=== PATIENT | female | born 1985 | race Caucasian/White ===

== ENCOUNTER → 2017-09-12 16:23 | Outpatient (CLI) | payer OTHER, SELFPAY ==
[2017-09-18 13:51] LABS: HPV Reflexed? NOT INDICATED
== END ==
PROVIDERS: Visit Provider Obstetrics & Gynecology
DX: Z12.4 Encounter for screening for malignant neoplasm of cervix (principal)
CPT/HCPCS: 88175; G0145

== ENCOUNTER → 2018-01-19 16:33 | Outpatient (CLI) | payer SELFPAY ==
[2018-01-19 18:07] LABS: Pregnancy, Serum, hCG Quali. NEGATIVE Negative (0-9 Nonpreg)
== END ==
PROVIDERS: Visit Provider Obstetrics & Gynecology
DX: N91.2 Amenorrhea, unspecified (principal)
CPT/HCPCS: 36415; 84703

== ENCOUNTER 2018-02-23 09:34 | Day surgery (SDC) | payer OTHER, SELFPAY ==
[2018-02-23 10:01] VITALS: BP 121/85; PULSE 79; RESP 18; TEMP 36.7; O2SAT 99; BMI 21.1
[2018-02-23 10:10] LABS: Internal QC Validated? YES +Cl - CLEAR BKGD; Pregnancy, Urine Negative Negative
--- NOTE | 2018-02-23 11:00 | NASAL_PTH ---
PATIENT: TASHA ARANDA LOC: [facility] [place] U[place][id number] AGE/SX: 32/F ROOM: RE02/23/[address]: Dr. Sharan Menon MD : 1985 BED: DIS: 02/23/2018 SPEC #: [id number] RECD: 02/24/18 09:07 STATUS: NHI NAEEM #: [id number] IGNACIO: 02/23/18 11:[address]: Sharan Menon DEPT: SURGICAL PATHOLOGY RECD BY: Manpreet Ayala ENTERED: 02/24/18 09:31 SP TYPE: NASAL SPEC OTHR DR: Norma Primary Care Phys Tissues: A - Ethmoid sinus, NOS B - Ethmoid sinus, NOS Procedures: Decalcification bone/plaque Surgery Specimen Level IV HEADER OPERATION: Endoscopic intranasal ethmoid, maxillary antrostomy PRE-OP DIAGNOSIS: Chronic pansinusitis, polyp of nasal cavity TISSUE SUBMITTED: A ? Left sinus contents, B ? Right sinus contents MICROSCOPIC DIAGNOSIS A. Left sinus contents: Fragments of respiratory mucosa with chronic inflammation and bone. B. Right sinus contents: Fragments of respiratory mucosa with chronic inflammation and bone. VIC:fariha 02/27/18 COMMENT Please make reference to previous specimen ([id number]) right sinus contents and left sinus contents with diagnosis of fragments of respiratory mucosa with chronic inflammation and bone. MICROSCOPIC DESCRIPTION Slides are reviewed. GROSS DESCRIPTION A - Received in fixative is one container labeled with the patient's name and designated left sinus contents. The specimen consists of multiple fragments of hemorrhagic mucoid tissue mixed with fragments of bone that in aggregate measure 5 x 3 x 0.3 cm. The entire specimen is submitted in two cassettes after decalcification. B - Received in fixative is one container labeled with the patient's name and designated right sinus contents. The specimen consists of multiple fragments of hemorrhagic mucoid tissue that in aggregate measure 3 x 2.5 x 0.2 cm. The entire specimen is submitted in one cassette. / VIC:afriha 02/24/18 TC:3 CPT: 05240 x2, 50818
--- NOTE | 2018-02-23 15:04 | PCM.DC ---
You will use the following diet at home:: Regular Your food should be the consistency of: Regular Additional Activity Instructions:: No noseblowing. Start irrigation on 02/24/18 (4x/day) Allergies/Adverse Reactions: Allergies Sulfa (Sulfonamide Antibiotics) Allergy (Verified 02/16/18 10:32) Rash NSAIDS (Non-Steroidal Anti-Inflamma Adverse Reaction (Verified 02/16/18 10:32) Hives, Wheezing, Sneezing Medications to take at Discharge Albuterol Inhaler [Ventolin Hfa] 1 - 2 puff INHALATION Q4H PRN PRN 09/18/14 Azelastine HCl [Astelin] 2 spray NASAL BID 04/01/16 Sertraline HCl [Zoloft] 50 mg PO DAILY 04/01/16 Fluticasone/Salmeterol [Advair Hfa 230-21 Mcg Inhaler] 2 puff INHALATION BID 02/16/18 Primary Care Physician: Care Physician,No Primary [Primary Care Provider] - Test Results: Test results from this visit will be discussed in further detail at your follow-up appointment, if applicable.
--- NOTE | 2018-02-23 16:13 | PCM.OPRPT ---
Report of Operation Date of Procedure: 02/23/18 Pre-Operative Diagnosis: chronic sinusitis Post-Operative Diagnosis: same Surgery/Procedure Performed:: bilateral maxillary antrostomy. bilateral total ethmoidectomy. Use of navigation Description of Surgical Findings:: polyps bilaterally Type of Anesthesia:: General Anesthesiologist: Prabhakar Reilly Specimen's removed: sinus contents Estimated Blood Loss (mL): minimal Description of Procedure: The patient was taken to the OR on 02/23/18. She was placed in the supine position on the OR table and given sufficient general anesthesia. The head of bed was then elevated 30 degrees. Zero and 30 degree rigid nasal endoscopes were used throughout the entire case. I injected 1% lidocaine with epinephrine into the polyps bilaterally. The procedure was started on the left. Polyp was resected with a microdebrider. I enlarged the maxillary antrum with a oscar cut forceps. I then removed diseased/polypoid tissue from the ethmoid cavity using Blakesly Wile forceps and a microdebrider. Navigation was used to ensure safe tissue removal. Hemostasis was achieved with sparing suction cautery and afrin pledgets. A steroid eluting sinus stent was then placed. Fozia was then used for absolute hemostasis. Attention was then turned to the right side. Polyp was removed from the ethmoid cavity using a microdebrider and forceps. Again navigation was used to ensure safe tissue removal. The maxillary antrum was widened with a microdebrider. Afrin pledgets were used for hemostasis. I then placed a steroid eluting stent into the ethmoid cavity. Fozia was used for absolute hemostasis. The procedure was then terminated. The patient was awoken and brought to the recover room in stable condition. blood loss minimal, replacement none. Sponge needle and instrument count were correct at the end of the procedure.
[2018-02-23 16:22] VITALS: BP 121/85; BP 150/77; PULSE 71; RESP 18; TEMP 36.4; O2SAT 99
[2018-02-23 16:30] VITALS: BP 121/85; BP 142/85; PULSE 75; RESP 18; O2SAT 97
[2018-02-23 16:45] VITALS: BP 121/85; BP 148/84; PULSE 79; RESP 18; TEMP 36.6; O2SAT 96
[2018-02-23 19:07] VITALS: BP 121/85; BP 160/89; PULSE 80; RESP 16; TEMP 37; O2SAT 98
== END 2018-02-23 19:09 | disposition home or self-care (01) ==
LOC: SDC 09:43 → AC 09:43
PROVIDERS: Visit Provider Otolaryngology
PROC: (CPT 31255; principal; 2018-02-23 10:45)
DX: J32.4 Chronic pansinusitis (principal); J33.0 Polyp of nasal cavity; J45.909 Unspecified asthma, uncomplicated; F32.9 Major depressive disorder, single episode, unspecified; Z79.899 Other long term (current) drug therapy
CPT/HCPCS: 00160; 31255; 31256; 81025; 88305; 88311; J7120; J2405

== ENCOUNTER → 2018-04-08 16:06 | Outpatient (CLI) | payer OTHER, SELFPAY | PROVIDERS: Visit Provider Otolaryngology | DX: J01.90 Acute sinusitis, unspecified (principal) | CPT/HCPCS: 87070; 87077; 87186; 87205 ==

== ENCOUNTER 2018-04-12 10:27 | Emergency (ER) | payer OTHER, SELFPAY ==
[2018-04-12 10:28] VITALS: BP 115/70; PULSE 91; RESP 18; TEMP 36.6; O2SAT 98; BMI 20.7
--- NOTE | 2018-04-12 10:55 | ED.DCSUM_ITS ---
- ER Visit Summary Date of Service: 04/12/18 Chief Complaint: Rash History of Present Illness: The patient is a 32 F who developed a rash that is starting doxycycline. Patient is taken 3 doses. She did nasal culture performed by Dr. Cardenas last week revealing staph aureus. She has had no improvement with 3 days of Ceftin ear was switched to doxycycline yesterday. This morning she noted a rash to her legs only. She denies shortness of breath or throat tightness. Physical Examination: Vital signs unremarkable. Patient sitting upright in bed no acute distress. She is speaking full sentences. Head neck examination is unremarkable. Heart is regular rate and rhythm. Lung sounds are clear. Abdomen is soft nontender. Skin examination was a flat red rash to the bilateral legs consistent with drug reaction. There are a few patches of psoriasis. There is no sign of cellulitis. Test Results: [] Emergency Department Course and Treatment: Wound culture was reviewed. Patient be switched to clindamycin which the infection is sensitive to. She will stop doxycycline. Treatment Plan: [] Disposition: Discharge Impression: Allergic drug reaction This note was generated with [employer] dictation software. It may contain incorrect words, spelling, and punctuation that were not noted in review of the chart prior to signing ED Disposition - Plan for ED Patient: Chief Complaint: Rash Referrals: Care Physician,No Primary [Primary Care Provider] -
--- NOTE | 2018-04-12 10:55 | ED.DEP ---
ED Disposition - Plan for ED Patient: Disposition: Home or Assisted Living Chief Complaint: Rash Instructions: ED Drug React Allergic Prescriptions: Clindamycin [Cleocin] 300 mg PO 4X/DAY #80 capsule Referrals: Sharan Menon MD [STAFF PHYSICIAN] - 5-7 Days
== END 2018-04-12 11:31 | disposition home or self-care (01) ==
LOC: ED 11:12
PROVIDERS: Emergency Provider Emergency Medicine
DX: L27.1 Localized skin eruption due to drugs and medicaments taken internally (principal); T36.4X5A Adverse effect of tetracyclines, initial encounter; Y92.9 Unspecified place or not applicable; J32.9 Chronic sinusitis, unspecified; Z79.899 Other long term (current) drug therapy
CPT/HCPCS: 99282

== ENCOUNTER → 2018-11-05 15:41 | Outpatient (CLI) | payer OTHER, SELFPAY ==
[2018-11-05 15:43] LABS: Mucous, Urine 0 SEEN /hpf (<or=2+); Red Blood Cells-Urine 0 SEEN /hpf (0-5)
[2018-11-05 16:37] LABS: Color, Urine Yellow (Yellow); Glucose, Dipstick Normal (Normal); Ketone-Dipstick Negative (Negative); Leukocyte Esterase-Dipstick 25 /ul (Negative); Nitrite-Dipstick Negative (Negative); Occult Blood-Urine Negative /ul (Negative); Protein-Dipstick Negative (Negative); Urine Bilirubin Dipstick Negative (Negative); Urine Clarity Cloudy (Clear); Urine Urobilinogen Normal (Normal)
[2018-11-05 17:05] LABS: Squamous Epithelial Cells - UA 0-5 SEEN /hpf (5-10)
[2018-11-05 17:06] LABS: Bacteria 1+ /hpf (None Seen)
[2018-11-05 17:08] LABS: White Blood Cells 0-5 SEEN /hpf (0-5)
[2018-11-05 17:27] LABS: AST(SGOT) 16 U/L (15-37); Alanine Aminotransfer ALT/SGPT 21 U/L (13-56); Alkaline Phosphatase 56 U/L (45-117); Bilirubin, Direct 0.13 mg/dL (0.00-0.30); Globulin 3.3 g/dL (2.2-4.2); Protein, Total 7.3 g/dL (6.4-8.2)
[2018-11-05 18:16] LABS: HIV - WCH Non-Reactive (Nonreactive)
[2018-11-09 11:30] LABS: HEPATITIS B SURFACE AG Negative (Negative)
== END ==
PROVIDERS: Family Provider Family Medicine; PCP Family Medicine; Visit Provider Family Medicine
DX: Z02.82 Encounter for adoption services (principal)
CPT/HCPCS: 36415; 80076; 81001; 86703; 87340

== ENCOUNTER → 2018-11-18 | Outpatient (CLI) | payer OTHER, SELFPAY ==
[2018-11-23 13:04] LABS: HPV Reflexed? NOT INDICATED
== END | disposition home or self-care (01) ==
PROVIDERS: Family Provider Family Medicine; PCP Family Medicine; Referring Provider Obstetrics & Gynecology; Visit Provider Obstetrics & Gynecology
DX: Z12.4 Encounter for screening for malignant neoplasm of cervix (principal)
CPT/HCPCS: 88175; G0145

== ENCOUNTER → 2019-07-08 10:37 | Outpatient (CLI) | payer OTHER, SELFPAY ==
[2019-07-08 13:10] LABS: hCG Titer Quant., Serum 55896 mIU/mL (1-3)
[2019-07-08 18:18] LABS: Chlamydia Trachomatis by PCR Negative (Negative); Neisserai gonorrhoeae by PCR Negative (Negative); Probe Check PASS; Sample Adequacy Control PASS; Specimen Processing Control PASS
== END ==
PROVIDERS: Family Provider Family Medicine; PCP Family Medicine; Referring Provider Obstetrics & Gynecology; Visit Provider Obstetrics & Gynecology
DX: Z11.3 Encounter for screening for infections with a predominantly sexual mode of transmission (principal)
CPT/HCPCS: 36415; 84702; 87491; 87591

== ENCOUNTER → 2019-07-23 10:42 | Outpatient (CLI) | payer OTHER, SELFPAY ==
[2019-07-23 11:52] LABS: Absolute Lymphocyte Count 1.52 X10^3/uL (0.83-4.51); Absolute Neutrophil Count 3.9 X10^3/uL (2.0-7.7); Basophil# 0.04 X10^3/uL; Basophil% 0.6 % (0-1); Eosinophil# 0.32 X10^3/uL; Eosinophils% 5.1 % (0-5); Hematocrit 35.9 % (37-47); Hemoglobin 11.7 g/dL (12.0-15.0); Lymphocyte # 1.52 X10^3/ul (4.0); Lymphocyte % 24.3 % (19-41); Mean Corp Hgb Conc 32.6 g/dL (32-36); Mean Corpuscular Hgb 29.3 pg (27.0-32.0); Mean Platelet Vol. 9.9 fl (6.2-12.0); Monocyte# 0.48 X10^3/uL; Monocyte% 7.7 % (0-10); NRBC Flagged by Analyzer 0 % (0-5); Neutrophil # 3.88 X10^3/uL (2.7-7.7); Neutrophil % 62.1 % (47-70); Platelet Count 265 K/mm3 (150-450); RBC Distribution Width CV 12.7 % (11.6-14.6); RBC Distribution Width SD 42.1 fl (35.1-43.9); Red Blood Count 3.99 M/mm3 (4.2-5.4); White Blood Count 6.3 K/mm3 (4.4-11.0)
[2019-07-23 11:58] LABS: Color, Urine Yellow (Yellow); Glucose, Dipstick Normal (Normal); Ketone-Dipstick Negative (Negative); Leukocyte Esterase-Dipstick Negative /ul (Negative); Nitrite-Dipstick Negative (Negative); Occult Blood-Urine Negative /ul (Negative); Protein-Dipstick Negative (Negative); Urine Bilirubin Dipstick Negative (Negative); Urine Clarity Sl. Cloudy (Clear); Urine Urobilinogen Normal (Normal)
[2019-07-23 12:11] LABS: Thyroid Stim Hormone (TSH) 1.62 uIU/mL (0.358-3.74)
[2019-07-23 12:13] LABS: Amphetamine Urine VISTA NEGATIVE (<1000 ng/mL); Barbiturate Urine VISTA NEGATIVE (< 200 ng/mL); Benzodiazepine Urine VISTA NEGATIVE (< 200 ng/mL); Cocaine Urine VISTA NEGATIVE (< 300 ng/mL); Ecstacy Urine VISTA NEGATIVE (< 500 ng/mL); Methadone Urine VISTA NEGATIVE (< 300 ng/mL); PCP Urine VISTA NEGATIVE (< 25 ng/mL); THC Urine VISTA NEGATIVE (< 50 ng/mL); Vista UDS pH Range 6
[2019-07-23 12:58] LABS: HIV - WCH Non-Reactive (Nonreactive); Hepatitis B Surface Antigen Non-Reactive (Nonreactive); Hepatitis C Antibody Non-Reactive (Nonreactive); Rubella IgG > 500.0 IU/mL
[2019-07-26 12:02] LABS: Prenatal RPR NONREACTIVE (NONREACTIVE)
== END ==
PROVIDERS: Family Provider Family Medicine; PCP Family Medicine; Visit Provider Obstetrics & Gynecology
DX: Z34.81 Encounter for supervision of other normal pregnancy, first trimester (principal)
CPT/HCPCS: 36415; 80307; 81002; 84443; 85025; 86703; 86762; 86803; 87340

== ENCOUNTER → 2019-11-25 17:31 | Outpatient (CLI) | payer OTHER, SELFPAY ==
[2019-11-25 18:25] LABS: Hematocrit 33.1 % (37-47); Hemoglobin 10.6 g/dL (12.0-15.0); Mean Corpuscular Hgb 30.2 pg (27.0-32.0); Mean Corpuscular Volume 94.3 fL (81-99); Mean Platelet Vol. 10.4 fl (6.2-12.0); Platelet Count 226 K/mm3 (150-450); RBC Distribution Width CV 13.6 % (11.6-14.6); RBC Distribution Width SD 46.8 fl (35.1-43.9); Red Blood Count 3.51 M/mm3 (4.2-5.4); White Blood Count 7.8 K/mm3 (4.4-11.0)
[2019-11-25 19:06] LABS: Glucose Challenge Gest 1H 50g 102 mg/dL (70-140)
== END ==
PROVIDERS: PCP Family Medicine; Visit Provider Obstetrics & Gynecology
DX: Z34.83 Encounter for supervision of other normal pregnancy, third trimester (principal)
CPT/HCPCS: 82950; 85027

== ENCOUNTER → 2020-01-18 17:14 | Outpatient (CLI) | payer OTHER, SELFPAY | PROVIDERS: PCP Family Medicine; Referring Provider Obstetrics & Gynecology; Visit Provider Obstetrics & Gynecology | DX: Z36.85 Encounter for antenatal screening for Streptococcus B (principal) | CPT/HCPCS: 87081 ==

== ENCOUNTER 2020-01-28 20:45 | Outpatient (CLI) | payer OTHER, SELFPAY ==
[2020-01-28 21:02] VITALS: BP 119/69; PULSE 87; TEMP 36.8; O2SAT 98
[2020-01-28 21:05] VITALS: BP 119/69; PULSE 83
[2020-01-28 21:22] VITALS: BMI 28.2
[2020-01-28 22:22] LABS: AST(SGOT) 15 U/L (15-37); Alanine Aminotransfer ALT/SGPT 18 U/L (13-56); Albumin, Serum 2.6 g/dL (3.2-5.0); Alkaline Phosphatase 135 U/L (45-117); Bilirubin, Direct 0.12 mg/dL (0.00-0.30); Globulin 3.8 g/dL (2.2-4.2); Protein, Total 6.4 g/dL (6.4-8.2)
[2020-01-28 23:35] VITALS: BP 119/69; PULSE 86; RESP 16; TEMP 36.8; O2SAT 98
--- NOTE | 2020-01-28 23:43 | OB.TRI.NOTE ---
- Problem List (1) Generalized pruritus Status: Acute History of Present Illness Date of Service: 01/28/20 Was patient seen by the physician?: Yes Reason For Visit: pruritis Final SMILEY Source: US <20 weeks History of Present Illness: 34yo sent in after call for persistent generalized itching. Denies itching of palms and soles however symptoms started 1 week ago. She reports feeling as if she took a medication that did not agree with her, but she continues all prior home meds used for several months. Denies change in detergent, fabric softener, new clothing, use of new lotions or fragrances or soaps. Reports good movement. Laboratory Results 01/28/20 21:31 Total Bilirubin 0.30 Direct Bilirubin 0.12 AST 15 ALT 18 Alkaline Phosphatase 135 H Total Protein 6.4 Albumin 2.6 L Globulin 3.8 Allergies cefdinir Allergy (Verified 01/28/20 21:15) Hives Sulfa (Sulfonamide Antibiotics) Allergy (Verified 04/12/18 10:31) Rash NSAIDS (Non-Steroidal Anti-Inflamma Adverse Reaction (Verified 04/12/18 10:31) Hives, Wheezing, Sneezing - Pertinent Past Medical History Medical History: Past Medical History (Last Updated 01/28/20 @ 23:[address] Whitney Merritt MD) Asthma Laboratory Studies: Laboratory Tests 01/28/20 Range/Units 21:31 Total Bilirubin 0.30 (0.20-1.00) mg/dL Direct Bilirubin 0.12 (0.00-0.30) mg/dL AST 15 (15-37) U/L ALT 18 (13-56) U/L Alkaline Phosphatase 135 H (45-117) U/L Total Protein 6.4 (6.4-8.2) g/dL Albumin 2.6 L (3.2-5.0) g/dL Globulin 3.8 (2.2-4.2) g/dL Physical Exam Vitals: Vital Signs Temp Pulse BP Pulse Ox 98.3 F 83 119/69 98 01/28/20 21:02 01/28/20 21:05 01/28/20 21:05 01/28/20 21:02 General: Alert, Oriented x3, Cooperative, No apparent distress, - - no rash HEENT: Atraumatic, Normocephalic Cardiovascular: Regular rate, Regular Rhythm, Normal S1, Normal S2 Lungs: Clear to auscultation, Normal air movement Abdomen: Soft, Non Tender, Non-Distended Extremities:: No edema Neurological: Neuro grossly intact Estimated gestational size: Appropriate for gestational size Presentation: Cephalic Impression/Plan 38 wga with itching -Male fetus -LFTs wnl and reactive NST -Bile acids sent - if elevated proceed with IOL -d/c home with trial Ursodiol po, If improvement of itching will proceed with IOL - movement counts and labor precautions reviewed -f/u in office on Friday as scheduled with BPP
== END 2020-01-28 23:35 | disposition home or self-care (01) ==
LOC: WPOUT 21:01 → OBT 21:01
PROVIDERS: PCP Family Medicine; Visit Provider Obstetrics & Gynecology
DX: O26.893 Other specified pregnancy related conditions, third trimester (principal); Z3A.38 38 weeks gestation of pregnancy; L29.9 Pruritus, unspecified
CPT/HCPCS: 36415; 59025; 59050; 80076; 99218; G0378

== ENCOUNTER 2020-02-04 07:05 | Inpatient (IN) | payer OTHER, SELFPAY ==
[2020-02-04] VITALS (29 sets, daily range): BP systolic 106–141; BP diastolic 56–81; PULSE 72–90; TEMP 36–37.4; O2SAT 83–100; BMI 28.0
[2020-02-04] MEDS: Lactated Ringers 1,000 ML 50 ML IV (08:00)
[2020-02-04 08:18] LABS: Absolute Neutrophil Count 6.1 X10^3/uL (2.0-7.7); Basophil# 0.02 X10^3/uL; Basophil% 0.3 % (0-1); Eosinophil# 0.16 X10^3/uL; Hematocrit 32.3 % (37-47); Hemoglobin 10.8 g/dL (12.0-15.0); Lymphocyte % 13.9 % (19-41); Mean Corp Hgb Conc 33.4 g/dL (32-36); Mean Corpuscular Hgb 31.9 pg (27.0-32.0); Mean Corpuscular Volume 95.3 fL (81-99); Mean Platelet Vol. 11.2 fl (6.2-12.0); Monocyte% 6.3 % (0-10); NRBC Flagged by Analyzer 0 % (0-5); Neutrophil # 6.12 X10^3/uL (2.7-7.7); Neutrophil % 77.1 % (47-70); Platelet Count 180 K/mm3 (150-450); RBC Distribution Width CV 13.5 % (11.6-14.6); RBC Distribution Width SD 46.4 fl (35.1-43.9); Red Blood Count 3.39 M/mm3 (4.2-5.4); White Blood Count 7.9 K/mm3 (4.4-11.0)
--- NOTE | 2020-02-04 08:27 | HP.PCM_ITS ---
- Problem List (1) 39 weeks gestation of Status: Acute (2) Cholecystitis Status: Acute History Date of Admission: 02/04/20 Final SMILEY: 02/11/20 Final SMILEY Source: US <20 weeks Gestational age: 39 Weeks and 0 Days History of this : This is a 34 year-old, G [2], P [1], at 39 weeks gestational age IOL for dru. Medical History: Medical History (Last Updated 01/28/20 @ 23:[address] Whitney Merritt MD) Asthma J45.909 Allergies cefdinir Allergy (Verified 01/28/20 21:15) Hives Sulfa (Sulfonamide Antibiotics) Allergy (Verified 04/12/18 10:31) Rash NSAIDS (Non-Steroidal Anti-Inflamma Adverse Reaction (Verified 04/12/18 10:31) Hives, Wheezing, Sneezing Home Medications: Home Medications Albuterol Inhaler [Ventolin Hfa] 1 - 2 puff INHALATION Q4H PRN PRN 09/18/14 Sertraline HCl [Zoloft] 50 mg PO DAILY 04/01/16 Fluticasone/Salmeterol [Advair Hfa 230-21 Mcg Inhaler] 2 puff INHALATION BID 02/16/18 Budesonide [Rhinocort Allergy] 8.43 ml NS BID 01/28/20 Cetirizine HCl [Zyrtec] 10 mg PO DAILY 01/28/20 Ferrofood 1 cap PO DAILY 02/04/20 Vit No.130/Iron/Folic [ Tablet] 1 ea PO DAILY 02/04/20 Ursodiol 300 mg PO TID 02/04/20 Smoking Status: Never smoker Alcohol: None Number of Fetus(es): 1 NST - FHR Rate Baby A Baseline: 140 Variability:: Moderate Accelerations:: 15 x 15 Decelerations:: None NST Reactive:: Yes FHR Category:: Category I Uterine Activity:: quiet History Past Pregnancies: Past Pregnancies: PRIOR DELIVERY HISTORY DEL DATE GEST LAB WT LB WT OZ TYPE ANES LABOR TX Sep 15 39 19 6 11 Vacuu Epidural No Labs: Mom's Labs & Results 02/04/20 02/04/20 08:00 08:00 WBC 7.9 RBC 3.39 L Hgb 10.8 L Hct 32.3 L MCV 95.3 MCH 31.9 MCHC 33.4 RDW Std Deviation 46.4 H RDW Coeff of Brady 13.5 Plt Count 180 MPV 11.2 Immature Gran % (Auto) 0.400 Neut % (Auto) 77.1 H Lymph % (Auto) 13.9 L [place] % (Auto) 6.3 Eos % (Auto) 2.0 Baso % (Auto) 0.3 Absolute Neuts (auto) 6.1 Absolute Lymphs (auto) 1.10 Nucleated RBC % 0 Blood Type A POSITIVE Antibody Screen NEGATIVE Course Did the patient receive Yes care? Labs Blood Type: A RH: POSITIVE RPR/VDRL/Syphilis Nonreactive Rubella status Immune HbSAg Negative Date Done: 07/23/19 Chlamydia Negative Gonorrhea Negative HIV/AIDS Non-Reactive Group B Strep: Negative Current Obstetrical History Gestational Diabetes No Incompetent Cervix No Infertility Yes: no treatments IUGR No Macrosomia No Hypertension/Pre-eclampsia No Placenta Previa/Abruption No PTL/PROM No Uterine anomaly No Oligohydramnios No Polyhydramnios No Multiple gestation No Past Medical History Asthma Yes Diabetes No Hypertension No Heart disease No Mitral valve prolapse No Neurologic/Seizure disorder/ No Migraines Kidney disease No Liver disease No Varicosities No Clotting disorders/Hx of DVT No Thyroid Dysfunction No Other medical diseases Yes: nasal polyps Psychiatric disorders Yes: depression Major trauma No Abnormal PAP smear No Sleep apnea No Mammogram in the last 2 years No Social History Marital Status: Alleged father Gurmeet Hx Smoking No Smoking Status Never smoker How long have you used na substances (years)? Expected Infant Delivery Method: Spontaneous Vaginal Number of Visits: 11 Review of Systems Constitutional: Denies: Chills, Fever, Weight Change HEENT: Denies: Head Aches, Sinus Congestion, Sinus Drainage Cardiovascular: Denies: Chest Pain, Palpitations Respiratory: Denies: Cough, Shortness of breath at rest, Sputum production Gastrointestinal: Denies: Abdominal Pain, Nausea, Vomiting Genitourinary: Denies: Dysuria Musculoskeletal: Denies: Joint Pain, Joint Tenderness Skin: Denies: Rash, Wounds Neurological: Denies: Numbness, Tingling, Focal weakness Psychiatric: Denies: Anxiety, Depression, Homicidal Ideations, Suicidal Ideations Hematologic/ Lymphatic: Denies: Easy Bruising, Easy Bleeding Physical Exam Vitals: Vital Signs Pulse BP 90 132/78 H 02/04/20 08:08 02/04/20 08:08 General: Alert, Oriented x3, No apparent distress HEENT: Atraumatic, Normocephalic. Negative for: Thyromegaly, Lymphadenopathy Cardiovascular: Regular rate, Regular Rhythm Lungs: Clear to auscultation Abdomen: Bowel Sounds Present, Gravid Neurological: Deep Tendon Reflexes 2+/4 and Symmetrical, Neuro grossly intact. Negative for: Muscle tone normal BRAKE SPECIALIST: Normal external genitalia. Negative for: Vulvar lesions Estimated gestational size: Appropriate for gestational size Presentation: Cephalic Cervix Dilation (cm): 2 Station: -3 Effacement (%): 50 Assessment/Plan All Active Problems (Last Updated 01/28/20 @ 23:[address] Whitney Merritt MD) Generalized pruritus (Acute) 39 weeks gestation of (Acute) Cholecystitis (Acute) A/P: This is a 34 year-old, G [2], P [1], at 39 weeks gestational age. IOL for dru with bile salts still pending Category I NST SVE 2/50/-3 soft posterior To start Pitocin and AROM when staffing allows Expect Procedure Criteria Procedure Type: Elective COVID Risk Discussion: The surgeon/proceduralist and patient have discussed in detail the risk of exposure to and/or potential harm posed by the COVID-19 virus with having a surgery/procedure at this time versus the risk of delaying the surger y/procedure. It is not possible to know either the risk of delaying the surgery or procedure or chance of getting an infection with perfect accuracy, but a joint decision was made between the patient and the surgeon/proceduralist to proceed at this time with the scheduled surgery/procedure as indicated on the consent form.
[2020-02-04] MEDS: Oxytocin 30 units/NS 500 ml 30 UNITS/500 ML IV.SOLN IV (11:16)
--- NOTE | 2020-02-04 16:37 | PCM.PN.OB ---
Subjective: Feeling contractions every 2-3 minutes. Rated the pain a 3/10. Otherwise feeling well. Objective: VSS. FHR baseline 140, +accels, -decels, moderate variability. SVE 3/50/-2 soft midpostion. AROM, clear fluid. - Physical Exam Vitals/I&O's: Vital Signs Temp Pulse BP Pulse Ox 99.3 F H 76 136/76 H 98 02/04/20 16:35 02/04/20 16:35 02/04/20 16:35 02/04/20 15:18 Weight: 72 kg Body Mass Index (BMI) 28.0 Intake and Output for Last 24 Hours 02/02/20 02/03/20 02/04/20 23:59 23:59 23:59 Intake Total 742.67 / 742.67 Output Total 1200 / 1200 Balance -457.33 / -457.33 General: Alert, Oriented x3, Cooperative HEENT: Atraumatic, PERRLA, EOMI, Normocephalic Neck: Supple, No JVD, Negative Carotid Bruits Lungs: Clear to auscultation, Normal air movement Cardiovascular: Regular rate, No murmurs Abdomen: Bowel Sounds Present, Soft, Non Tender Extremities: No edema, Capillary Refill Less than 3 Seconds Skin: No rashes, No breakdown Musculoskeletal: No Tenderness to Palpation of Joints or Extremities Neurological: Cranial nerves II-XII grossly intact Psych/Mental Status: Normal Affect, Appropriate Laboratory Results 02/04/20 08:00: WBC 7.9, RBC 3.39 L, Hgb 10.8 L, Hct 32.3 L, MCV 95.3, MCH 31.9, MCHC 33.4, RDW Std Deviation 46.4 H, RDW Coeff of Brady 13.5, Plt Count 180, MPV 11.2, Immature Gran % (Auto) 0.400, Neut % (Auto) 77.1 H, Lymph % (Auto) 13.9 L, [place] % (Auto) 6.3, Eos % (Auto) 2.0, Baso % (Auto) 0.3, Absolute Neuts (auto) 6.1, Absolute Lymphs (auto) 1.10, Nucleated RBC % 0 02/04/20 08:00: Blood Type A POSITIVE, Antibody Screen NEGATIVE Current Medications Acetaminophen (Tylenol) 325 - 650 mg PO Q4H PRN PRN PRN Reason: Pain Score 1-3/10 Al Hydroxide/Mg Hydroxide (Mylanta Ii) 15 - 30 ml PO Q4H PRN PRN PRN Reason: INDIGESTION Citric Acid/Sodium Citrate (Bicitra) 30 ml PO X1 PRN PRN Reason: Section Fentanyl Citrate (Sublimaze (100mcg Ampule)) 25 - 50 mcg IV Q2H PRN PRN PRN Reason: Pain Score 4-10/10 Lactated Ringer's () 500 mls @ 999 mls/hr IV .Q31M PRN PRN Reason: Epidural Lactated Ringer's () 500 mls @ 999 mls/hr IV .Q31M PRN PRN Reason: Corrective Measures Lactated Ringer's () 1,000 mls @ 50 mls/hr IV .Q20H [facility] Last Admin: 02/04/20 08:00 Dose: 50 mls/hr Documented by: Oxytocin/Sodium Chloride () 30 units in 500 mls @ 2 mls/hr IV .Q250H [facility] Last Infusion: 02/04/20 15:30 Dose: 10 mls/hr Documented by: Ondansetron HCl (Zofran) 4 mg IV Q4H PRN PRN PRN Reason: NAUSEA Prochlorperazine Edisylate (Compazine Iv) 10 mg IV Q6H PRN PRN PRN Reason: NAUSEA Sodium Chloride () 10 - 40 ml IV X1 PRN PRN Reason: SALINE FLUSH Medical Necessity - Tobacco Use Smoking Status: Never smoker Assessment/Plan All Active Problems (Last Updated 01/28/20 @ 23:[address] Whitney Merritt MD) Generalized pruritus (Acute) A/P: IOL for cholecystitis SVE /-2 soft midposition AROM 1631, clear fluid Pitocin at 10u Plans epidural for pain management To continue IOL \ Expect
[2020-02-04] MEDS: Lactated Ringers 500 ML 999 ML IV (18:51)
[2020-02-04] MEDS: fentaNYL-bupivacaine (epidural) 100 ML BAG EPIDURAL (19:53)
[2020-02-04] MEDS: Ondansetron 4 MG/2 ML Vial IV (20:58)
[2020-02-04] MEDS: 0.9% Saline Lock 10 ML Syringe IV (20:58)
[2020-02-04] MEDS: Lactated Ringers 1,000 ML 200 ML IV (22:00)
[2020-02-05] VITALS (16 sets, daily range): BP systolic 108–138; BP diastolic 55–77; PULSE 82–110; RESP 16; TEMP 36.5–37.3; O2SAT 100
[2020-02-05] MEDS: fentaNYL-bupivacaine (epidural) 100 ML BAG EPIDURAL (00:36)
[2020-02-05] MEDS: Oxytocin 30 units/NS 500 ml 30 UNITS/500 ML IV.SOLN 334 UNITS IV (01:54)
--- NOTE | 2020-02-05 02:05 | PCM.OPRPT ---
Vaginal Delivery Maternal Presentation: Elective Induction Method of Induction: Pitocin, Amniotomy Medical Reason for Induction: - - Possible cholestasis of Amniotic Membrane Rupture Type: Artificial Amniotic Fluid Description: Clear Final SMILEY: 02/11/20 Final SMILEY Source: US <20 weeks Gestational age: 39 Weeks and 1 Days Date of Procedure: 02/05/20 Pre-Operative Diagnosis: IUP Post-Operative Diagnosis: IUP Surgery/ Procedure Performed: Spontaneous Vaginal Delivery Type of Anesthesia: Epidural Description of Procedure: Spontaneous vaginal delivery of a viable male infant with Apgars of 8/9 from an occiput anterior presentation with clear amniotic fluid and normal three-vessel placenta. Cord around the neck x2 tight. No episiotomy. Second-degree midline laceration repaired with 3-0 rapide suture under epidural. Sponges okay. Delivery physician: Ifeanyi Reilly MD. Presentation: Vertex Placental Delivery Description: Spontaneous Placenta Disposition: [facility] Cord Vessel Description: 3 Vessels Cord Entanglement: Around neck x 2, tight Estimated Blood Loss: 250 cc A gender: Male (1 minute): 8 (5 minute): 9 Episiotomy Description: None Laceration: Midline, 2nd degree Medications given after delivery: IV Pitocin Complications: None
[2020-02-05] MEDS: Ursodiol 250 MG Tablet PO ×3 (06:15→21:36)
--- NOTE | 2020-02-05 09:01 | PN.OBGYN_ITS ---
Patient Problems: Active and Suspected Problems (Last Updated 01/28/20 @ 23:[address] Whitney Merritt MD) 39 weeks gestation of (Acute) Cholecystitis (Acute) Subjective: Feeling well today. A little cramping, but not much. Denies heavy bleeding. Has been up ambulating in her room, urinating well, and passing flatus. Tolerating a regular diet. Will want to discharge tomorrow. Objective: VSS. Fundus is firm, midline, u/1. Lochia rubra moderate. - Physical Exam Vitals/I&O's: Vital Signs Temp Pulse Resp BP Pulse Ox 98.0 F 93 16 108/66 100 02/05/20 08:28 02/05/20 08:28 02/05/20 08:28 02/05/20 08:28 02/05/20 01:53 Weight: 72 kg Body Mass Index (BMI) 28.0 Intake and Output for Last 24 Hours 02/03/20 02/04/20 02/05/20 23:59 23:59 23:59 Intake Total 2598.84 / 2598.84 1291.47 / 1291.47 Output Total 1450 / 1450 1100 / 1100 Balance 1148.84 / 1148.84 191.47 / 191.47 General: Alert, Oriented x3, Cooperative HEENT: Atraumatic, PERRLA, EOMI, Normocephalic Neck: Supple, No JVD, Negative Carotid Bruits Lungs: Clear to auscultation, Normal air movement Cardiovascular: Regular rate, No murmurs Abdomen: Bowel Sounds Present, Soft, Non Tender Extremities: No edema, Capillary Refill Less than 3 Seconds Skin: No rashes, No breakdown Musculoskeletal: No Tenderness to Palpation of Joints or Extremities Neurological: Cranial nerves II-XII grossly intact Psych/Mental Status: Normal Affect, Appropriate Laboratory Results 02/04/20 08:00: Blood Type A POSITIVE, Antibody Screen NEGATIVE 02/04/20 20:10: COVID-19 (ADRIANO) Negative Current Medications Acetaminophen (Tylenol) 1,000 mg PO Q8H PRN PRN PRN Reason: Pain Score 1-3/10 Albuterol Sulfate (Ventolin Aerosols) 2.5 mg INHALATION Q4H PRN PRN PRN Reason: SHORTNESS OF BREATH Bisacodyl (Dulcolax) 10 mg RECTAL UD PRN PRN Reason: If no BM Dibucaine (Dibucaine) 1 applic TOPICAL TID PRN PRN; Protocol PRN Reason: Discomfort Fluticasone Propionate (Flonase Nasal [place]) 1 spray NASAL DAILY [facility] Hydrocortisone (Hytone) 1 applic TOPICAL TID PRN PRN; Protocol PRN Reason: Discomfort Ibuprofen (Motrin) 600 mg PO Q6H PRN PRN PRN Reason: Pain Score 1-3/10 Loratadine (Claritin) 10 mg PO DAILY [facility] Methylergonovine Maleate (Methergine) 0.2 mg IM X1 PRN PRN Reason: Excess bleeding/uterine atony Ondansetron HCl (Zofran) 4 mg IV Q4H PRN PRN PRN Reason: Nausea Oxycodone HCl (Oxyir) 5 - 10 mg PO Q4H PRN PRN PRN Reason: Pain Score 4-10/10 Senna/Docusate Sodium (Senokot-S, Toyin-Colace) 1 - 2 tablet PO DAILY PRN PRN PRN Reason: Constipation Sertraline HCl (Zoloft) 50 mg PO DAILY [facility] Simethicone (Mylicon) 80 mg PO PCHS PRN PRN Reason: Indigestion/Stomach pain Sodium Chloride () 5 - 15 ml IV UD PRN PRN Reason: SALINE FLUSH Ursodiol (Khurram) 250 mg PO TID [facility] Last Admin: 02/05/20 06:15 Dose: 250 mg Documented by: Zolpidem Tartrate (Ambien (Generic)) 5 mg PO QHS PRN PRN PRN Reason: Insomnia Medical Necessity - Tobacco Use Smoking Status: Never smoker Assessment/Plan All Active Problems (Last Updated 01/28/20 @ 23:[address] Whitney Merritt MD) Generalized pruritus (Acute) 39 weeks gestation of (Acute) Cholecystitis (Acute) A/P: S/P day 0 Normal involution and course mother Dyad stable Male circumcision is planned for today To discharge tomorrow
--- NOTE | 2020-02-05 15:45 | CASEMGMT ---
Social Work Brief Assessment - Labor and Delivery Unit Refer documentation below for further details. 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 Baby boy, Nelson sleeping in bassinet upon entering room. Introduced role and reason for referral. MOB reports has all needs met for baby and has been feeling well since delivery early this morning. MOB discussed history of PPD with first baby. MOB reports is prescribed medication and is ?doing well.? MOB reports good support from and family. Reviewed educational resources on PPD with MOB. MOB denies any issues or concerns. Plan: Home with resources provided No further needs requested or indicated. -Araseli Cordova, BARREL ENDSHAKER ADJUSTER, CLINICAL LIAISON
[2020-02-05] MEDS: Acetaminophen 500 MG Tablet 1000 MG PO (19:29)
[2020-02-05] MEDS: Sertraline 50 MG Tablet PO (21:36)
[2020-02-06 00:53] VITALS: BP 103/64; PULSE 70; RESP 12; TEMP 36.3
[2020-02-06 03:40] VITALS: BP 114/72; PULSE 82; RESP 16; TEMP 36.3
[2020-02-06] MEDS: Acetaminophen 500 MG Tablet 1000 MG PO (03:40)
[2020-02-06] MEDS: Ursodiol 250 MG Tablet PO (05:32)
[2020-02-06 08:48] VITALS: BP 110/67; PULSE 80; RESP 18; TEMP 36.9
--- NOTE | 2020-02-06 09:42 | DCINST_ITS ---
Discharge Diet: No Restrictions Discharge Activity: Return to Normal Activity, May not drive while taking narcotic pain medications., May Shower May resume sexual activity in: 4-6 weeks Additional Activity Instructions:: Nothing in the vagina for 4-6 weeks. You may return to work/school in 6 weeks. Call your doctor if your incision/area has: Continuous Slow Oozing, Sudden Increased Bleeding, Increased Pain/ Swelling, Increased Redness, Foul Smelling Discharge Additional Instructions: If you experience any of the following, contact your healthcare provider. * Bleeding that soaks a pad every hour for 2 hours * Fever 100.4 or higher * Unrelieved incision or abdominal pain * Swelling, redness, discharge or bleeding from your incision or episiotomy site * Your incision begins to separate * Problems urinating (including inability to urinate or burning while urinating). * Visual changes * Severe headache * Flu-like symptoms * Pain or redness in one of both of your breasts * Pain, warmth, tenderness or swelling in your legs, especially the calf area * Frequent nausea and vomiting * Symptoms of depression or anxiety If you experience any of the following, call 911 or go to the nearest Emergency Room. * Chest pain * Problems breathing * Seizure activity * Partial or complete paralysis of a body part, slurred speech, weakness or drooping of the face, or a sudden inability to walk or hold your balance Allergies/Adverse Reactions: Allergies cefdinir Allergy (Verified 02/04/20 08:44) Hives Sulfa (Sulfonamide Antibiotics) Allergy (Verified 02/04/20 08:44) Rash NSAIDS (Non-Steroidal Anti-Inflamma Adverse Reaction (Verified 02/04/20 08:44) Hives, Wheezing, Sneezing Medications to take at Discharge Albuterol Inhaler [Ventolin Hfa] 1 - 2 puff INHALATION Q4H PRN PRN 09/18/14 Sertraline HCl [Zoloft] 50 mg PO DAILY 04/01/16 Fluticasone/Salmeterol [Advair Hfa 230-21 Mcg Inhaler] 2 puff INHALATION BID 02/16/18 Budesonide [Rhinocort Allergy] 8.43 ml NS BID 01/28/20 Cetirizine HCl [Zyrtec] 10 mg PO DAILY 01/28/20 Ferrofood 1 cap PO DAILY 02/04/20 Vit No.130/Iron/Folic [ Tablet] 1 ea PO DAILY 02/04/20 Ursodiol 300 mg PO TID 02/04/20 Please Follow Up With: Rosy Chatman CNM When: Call to make an appointment with your CNM in 2 weeks for telehealth and 6 weeks for a routine visit. Primary Care Physician: Hodan Mcallister MD [Primary Care Provider] - Test Results: Test results from this visit will be discussed in further detail at your follow- up appointment, if applicable.
--- NOTE | 2020-02-06 09:52 | PN.OBGYN_ITS ---
Patient Problems: Active and Suspected Problems (Last Updated 01/28/20 @ 23:[address] Whitney Merritt MD) 39 weeks gestation of (Acute) Cholecystitis (Acute) Subjective: Feeling well today. Cramping while 09/27. Has been ambulating well, tolerating a regular diet, urinating well and passing flatus. Is still itchy all over arms and legs. Objective: VSS. Fundus is firm, midline, u/1. Lochia rubra moderate. - Physical Exam Vitals/I&O's: Vital Signs Temp Pulse Resp BP Pulse Ox 98.5 F 80 18 110/67 100 02/06/20 08:48 02/06/20 08:48 02/06/20 08:48 02/06/20 08:48 02/05/20 01:53 Oxygen Delivery Method Room Air Weight: 72 kg Body Mass Index (BMI) 28.0 Intake and Output for Last 24 Hours 02/04/20 02/05/20 02/06/20 23:59 23:59 23:59 Intake Total 2598.84 / 2598.84 1291.47 / 1291.47 Output Total 1450 / 1450 1100 / 1100 Balance 1148.84 / 1148.84 191.47 / 191.47 General: Alert, Oriented x3, Cooperative HEENT: Atraumatic, PERRLA, EOMI, Normocephalic Neck: Supple, No JVD, Negative Carotid Bruits Lungs: Clear to auscultation, Normal air movement Cardiovascular: Regular rate, No murmurs Abdomen: Bowel Sounds Present, Soft, Non Tender Extremities: No edema, Capillary Refill Less than 3 Seconds Skin: No rashes, No breakdown Musculoskeletal: No Tenderness to Palpation of Joints or Extremities Neurological: Cranial nerves II-XII grossly intact Psych/Mental Status: Normal Affect, Appropriate Current Medications Acetaminophen (Tylenol) 1,000 mg PO Q8H PRN PRN PRN Reason: Pain Score 1-09/27 Last Admin: 02/06/20 03:40 Dose: 1,000 mg Documented by: Albuterol Sulfate (Ventolin Aerosols) 2.5 mg INHALATION Q4H PRN PRN PRN Reason: SHORTNESS OF BREATH Bisacodyl (Dulcolax) 10 mg RECTAL UD PRN PRN Reason: If no BM Dibucaine (Dibucaine) 1 applic TOPICAL TID PRN PRN; Protocol PRN Reason: Discomfort Fluticasone Propionate (Flonase Nasal [place]) 1 spray NASAL DAILY [facility] Last Admin: 02/05/20 11:26 Dose: Not Given Documented by: Hydrocortisone (Hytone) 1 applic TOPICAL TID PRN PRN; Protocol PRN Reason: Discomfort Ibuprofen (Motrin) 600 mg PO Q6H PRN PRN PRN Reason: Pain Score 1-3/10 Loratadine (Claritin) 10 mg PO DAILY [facility] Last Admin: 02/05/20 11:26 Dose: Not Given Documented by: Methylergonovine Maleate (Methergine) 0.2 mg IM X1 PRN PRN Reason: Excess bleeding/uterine atony Ondansetron HCl (Zofran) 4 mg IV Q4H PRN PRN PRN Reason: Nausea Oxycodone HCl (Oxyir) 5 - 10 mg PO Q4H PRN PRN PRN Reason: Pain Score 4-10/10 Senna/Docusate Sodium (Senokot-S, Toyin-Colace) 1 - 2 tablet PO DAILY PRN PRN PRN Reason: Constipation Sertraline HCl (Zoloft) 50 mg PO DAILY@2200 [facility] Last Admin: 02/05/20 21:36 Dose: 50 mg Documented by: Simethicone (Mylicon) 80 mg PO PCHS PRN PRN Reason: Indigestion/Stomach pain Sodium Chloride () 5 - 15 ml IV UD PRN PRN Reason: SALINE FLUSH Ursodiol (Khurram) 250 mg PO TID [facility] Last Admin: 02/06/20 05:32 Dose: 250 mg Documented by: Zolpidem Tartrate (Ambien (Generic)) 5 mg PO QHS PRN PRN PRN Reason: Insomnia Medical Necessity - Tobacco Use Smoking Status: Never smoker Assessment/Plan All Active Problems (Last Updated 01/28/20 @ 23:[address] Whitney Merritt MD) Generalized pruritus (Acute) 39 weeks gestation of (Acute) Cholecystitis (Acute) A/P: S/P Day #1 mother Dyad stable male to be circumcised today Cramping well controlled with Tylenol and heat, unable to take Motrin Itching persists over bilateral arms and legs, but is getting better. To continue Urosidiol until lab results are back Will call patient with lab results Educated on , cramping, normal involution and lochia, Ami, and signs of depression To have 2 week telehealth appt and 6 week routine PP appt
== END 2020-02-06 12:05 | disposition home or self-care (01) | DRG 806 ==
PROVIDERS: Admitting Provider Obstetrics & Gynecology; PCP Family Medicine; Referring Provider Obstetrics & Gynecology; Visit Provider Obstetrics & Gynecology
DX: O99.62 Diseases of the digestive system complicating childbirth (principal); K81.0 Acute cholecystitis; Z37.0 Single live birth; O99.344 Other mental disorders complicating childbirth; F32.9 Major depressive disorder, single episode, unspecified; O69.1XX0 Labor and delivery complicated by cord around neck, with compression, not applicable or unspecified; O70.1 Second degree perineal laceration during delivery; O90.89 Other complications of the puerperium, not elsewhere classified; L29.9 Pruritus, unspecified; Z3A.39 39 weeks gestation of pregnancy
CPT/HCPCS: 59025; 59050; 85025; 86850; 86900; 86901; 87635; 99218; G2023; J7120; A4216; G0378; J2405; U0003

== ENCOUNTER 2021-09-19 13:45 | Outpatient (CLI) | payer OTHER, SELFPAY ==
[2021-09-19 15:22] LABS: Absolute Lymphocyte Count 1.73 X10^3/uL (0.83-4.51); Absolute Neutrophil Count 3.4 X10^3/uL (2.0-7.7); Basophil# 0.07 X10^3/uL; Basophil% 1.1 % (0-1); Eosinophils% 9.8 % (0-5); Hematocrit 39.4 % (37-47); Hemoglobin 12.6 g/dL (12.0-15.0); Lymphocyte # 1.73 X10^3/ul (0.83-4.51); Lymphocyte % 28.3 % (19-41); Mean Corpuscular Hgb 29.5 pg (27.0-32.0); Mean Corpuscular Volume 92.3 fL (81-99); Mean Platelet Vol. 10.7 fl (6.2-12.0); Monocyte% 4.9 % (0-10); NRBC Flagged by Analyzer 0 % (0-5); Neutrophil # 3.39 X10^3/uL (2.7-7.7); Neutrophil % 55.6 % (47-70); Platelet Count 286 K/mm3 (150-450); RBC Distribution Width CV 12.8 % (11.6-14.6); RBC Distribution Width SD 43.5 fl (35.1-43.9); Red Blood Count 4.27 M/mm3 (4.2-5.4); White Blood Count 6.1 K/mm3 (4.4-11.0)
[2021-09-19 16:00] LABS: AST(SGOT) 16 U/L (15-37); Alanine Aminotransfer ALT/SGPT 20 U/L (13-56); Alkaline Phosphatase 57 U/L (45-117); Anion Gap 6 (5-15); BUN 12 mg/dL (7-18); BUN/Creat Ratio 17.7 RATIO (10-20); Bilirubin, Direct 0.13 mg/dL (0.00-0.30); Calcium,Total 8.8 mg/dL (8.5-10.1); Chloride 104 mmol/L (98-107); Creatinine, Serum 0.68 mg/dL (0.55-1.02); EST Glomerular Filtration Rate 104 mL/min (>60); Est Glom Filt Rate - Afr Amer 126 mL/min (>60); Globulin 3.9 g/dL (2.2-4.2); Glucose 95 mg/dL (74-106); Potassium 3.9 mmol/L (3.5-5.1); Protein, Total 7.9 g/dL (6.4-8.2); Sodium Level 139 mmol/L (136-145)
[2021-09-20 08:37] LABS: Hepatitis B Surface Antibody Non-Reactive; Hepatitis B Surface Antigen Non-Reactive (Nonreactive); Hepatitis C Antibody Non-Reactive (Nonreactive)
[2021-09-21 21:07] LABS: QNTFERON TB Mitogen Value > 10.00 IU/mL (.); QNTFERON TB Nil Value 0 IU/mL (.); QNTFERON TB1+ Ag Value 0.02 IU/mL (.); QNTFERON TB2+ Ag Value 0 IU/mL (.)
[2021-09-21 21:33] LABS: Hepatitis B Core Ab Total Negative (Negative); QNTIFERON TB Positive Criteria Negative (Negative)
== END 2021-09-19 23:59 | disposition home or self-care (01) ==
LOC: MTLAB 13:47
PROVIDERS: PCP Family Medicine; Referring Provider Dermatology; Visit Provider Dermatology
DX: L40.0 Psoriasis vulgaris (principal); Z79.899 Other long term (current) drug therapy
CPT/HCPCS: 36415; 80048; 80076; 85025; 86480; 86704; 86706; 86803; 87340

== ENCOUNTER → 2022-04-18 | Outpatient (CLI) | payer OTHER, SELFPAY ==
[2022-04-18 15:23] LABS: Absolute Lymphocyte Count 1.39 X10^3/uL (0.83-4.51); Absolute Neutrophil Count 3.9 X10^3/uL (2.0-7.7); Basophil# 0.06 X10^3/uL; Eosinophil# 0.36 X10^3/uL; Hematocrit 37.7 % (37-47); Hemoglobin 12.4 g/dL (12.0-15.0); Lymphocyte # 1.39 X10^3/ul (0.83-4.51); Mean Corp Hgb Conc 32.9 g/dL (32-36); Mean Corpuscular Hgb 29.7 pg (27.0-32.0); Mean Corpuscular Volume 90.2 fL (81-99); Mean Platelet Vol. 10.5 fl (6.2-12.0); Monocyte# 0.36 X10^3/uL; NRBC Flagged by Analyzer 0 % (0-5); Neutrophil # 3.86 X10^3/uL (2.7-7.7); Neutrophil % 63.8 % (47-70); Platelet Count 250 K/mm3 (150-450); RBC Distribution Width CV 12.3 % (11.6-14.6); RBC Distribution Width SD 40.5 fl (35.1-43.9); Red Blood Count 4.18 M/mm3 (4.2-5.4)
[2022-04-22 18:07] LABS: Cytoplasmic Ab (C-ANCA) <1:20 titer (Neg:<1:20)
[2022-04-23 10:44] LABS: Perinuclear Ab (P-ANCA) <1:20 titer (Neg:<1:20)
== END | disposition home or self-care (01) ==
LOC: MTLAB 14:03
PROVIDERS: PCP Family Medicine
DX: J33.9 Nasal polyp, unspecified (principal); J45.909 Unspecified asthma, uncomplicated
CPT/HCPCS: 36415; 85025; 86256

== ENCOUNTER → 2022-07-10 | Outpatient (CLI) | payer OTHER, SELFPAY ==
[2022-07-22 16:12] LABS: HPV APTIMA, High Risk Negative (Negative)
== END | disposition home or self-care (01) ==
LOC: LABSPEC 15:49
PROVIDERS: PCP Family Medicine; Visit Provider Student in an Organized Health Care Education/Training Program
DX: Z12.4 Encounter for screening for malignant neoplasm of cervix (principal)
CPT/HCPCS: 87624; 88175; G0145

== ENCOUNTER → 2022-10-02 | Outpatient (CLI) | payer OTHER, SELFPAY ==
[2022-10-04 16:09] LABS: QNTFERON TB Mitogen Value > 10.00 IU/mL (.); QNTFERON TB Nil Value 0.02 IU/mL (.); QNTFERON TB1+ Ag Value 0.02 IU/mL (.); QNTFERON TB2+ Ag Value 0.02 IU/mL (.)
[2022-10-04 17:03] LABS: QNTIFERON TB Positive Criteria Negative (Negative)
== END | disposition home or self-care (01) ==
LOC: MTLAB 14:33
PROVIDERS: PCP Family Medicine; Referring Provider Dermatology; Visit Provider Dermatology
DX: L40.0 Psoriasis vulgaris (principal); J33.9 Nasal polyp, unspecified; J45.909 Unspecified asthma, uncomplicated; B07.8 Other viral warts; L81.0 Postinflammatory hyperpigmentation; Z79.899 Other long term (current) drug therapy
CPT/HCPCS: 36415; 86480

== ENCOUNTER → 2023-05-29 | Outpatient (CLI) | payer OTHER, SELFPAY ==
[2023-05-29 17:33] LABS: Absolute Lymphocyte Count 1.58 X10^3/uL (0.83-4.51); Absolute Neutrophil Count 3.7 X10^3/uL (2.0-7.7); Basophil# 0.06 X10^3/uL; Basophil% 0.8 % (0-1); Eosinophil# 1.48 X10^3/uL; Eosinophils% 20.4 % (0-5); Hematocrit 38.2 % (37-47); Hemoglobin 12.1 g/dL (12.0-15.0); Lymphocyte # 1.58 X10^3/ul (0.83-4.51); Lymphocyte % 21.8 % (19-41); Mean Corp Hgb Conc 31.7 g/dL (32-36); Mean Corpuscular Hgb 28.8 pg (27.0-32.0); Mean Platelet Vol. 10.3 fl (6.2-12.0); Monocyte# 0.38 X10^3/uL; Monocyte% 5.2 % (0-10); NRBC Flagged by Analyzer 0 % (0-5); Neutrophil # 3.74 X10^3/uL (2.7-7.7); Neutrophil % 51.5 % (47-70); Platelet Count 246 K/mm3 (150-450); RBC Distribution Width CV 12.4 % (11.6-14.6); RBC Distribution Width SD 41.2 fl (35.1-43.9); White Blood Count 7.3 K/mm3 (4.4-11.0)
[2023-05-29 18:02] LABS: AST(SGOT) 14 U/L (15-37); Alanine Aminotransfer ALT/SGPT 16 U/L (13-56)
== END | disposition home or self-care (01) ==
LOC: MTLAB 16:09
PROVIDERS: PCP Family Medicine; Referring Provider Dermatology; Visit Provider Dermatology
DX: Z79.899 Other long term (current) drug therapy (principal)
CPT/HCPCS: 36415; 84450; 84460; 85025

== ENCOUNTER → 2023-10-16 | Outpatient (CLI) | payer OTHER, SELFPAY ==
[2023-10-16 17:25] LABS: Absolute Lymphocyte Count 1.39 X10^3/uL (0.83-4.51); Absolute Neutrophil Count 3.5 X10^3/uL (2.0-7.7); Basophil# 0.09 X10^3/uL; Basophil% 1.4 % (0-1); Eosinophil# 1.07 X10^3/uL; Eosinophils% 16.1 % (0-5); Hematocrit 36.1 % (37-47); Hemoglobin 11.7 g/dL (12.0-15.0); Lymphocyte # 1.39 X10^3/ul (0.83-4.51); Mean Corp Hgb Conc 32.4 g/dL (32-36); Mean Corpuscular Hgb 29.3 pg (27.0-32.0); Mean Corpuscular Volume 90.3 fL (81-99); Monocyte# 0.53 X10^3/uL; NRBC Flagged by Analyzer 0 % (0-5); Neutrophil # 3.54 X10^3/uL (2.7-7.7); Neutrophil % 53.3 % (47-70); Platelet Count 242 K/mm3 (150-450); RBC Distribution Width CV 12.4 % (11.6-14.6); RBC Distribution Width SD 41.4 fl (35.1-43.9); White Blood Count 6.6 K/mm3 (4.4-11.0)
[2023-10-16 17:47] LABS: AST(SGOT) 18 U/L (15-37); Alanine Aminotransfer ALT/SGPT 19 U/L (13-56)
[2023-10-18 09:08] LABS: QNTFERON TB Mitogen Value > 10.00 IU/mL (.); QNTFERON TB Nil Value 0.02 IU/mL (.); QNTFERON TB1+ Ag Value 0.04 IU/mL (.); QNTFERON TB2+ Ag Value 0.04 IU/mL (.); QNTIFERON TB Positive Criteria Negative (Negative)
== END | disposition home or self-care (01) ==
PROVIDERS: PCP Family Medicine; Referring Provider Dermatology; Visit Provider Dermatology
DX: Z79.899 Other long term (current) drug therapy (principal)
CPT/HCPCS: 36415; 84450; 84460; 85025; 86480

== ENCOUNTER → 2024-01-19 | Outpatient (CLI) | payer OTHER, SELFPAY ==
--- NOTE | 2024-01-19 15:59 | BI_ITS ---
MAMMOGRAPHY - BILATERAL SCREENING 3-D TOMOSYNTHESIS REASON FOR EXAM: Female, 38 years old. Screening for breast cancer PERTINENT HISTORY: No significant family history. TECHNIQUE: 2-D mammograms and 3-D Tomosynthesis of the breast (s) were performed. CAD was performed. COMPARISON: None. FINDINGS: The breast composition is Extermely dense tissue. Scattered benign calcifications are seen. No dense spiculated masses or suspicious microcalcifications are identified. No architectural distortion is identified. There is no skin thickening or retraction. There has been no significant change since the prior study. BI/SCRN MAMM (CAD)W/MARCELO BILAT IMPRESSION: No mammographic signs of malignancy. Routine yearly mammograms recommended. ASSESSMENT CATEGORY: BIRADS Category 1: Negative. A letter regarding these results will be sent to the patient by the facility within 30 days. FOLLOW UP RECOMMENDATION: Yearly follow up mammogram recommended. (A) Approximately 10% of breast cancers are not detected by mammography. A normal mammogram should not delay biopsy of a clinically suspicious abnormality. Electronically Signed: Esequiel Galaviz MD at 16:43 EDT ,
== END | disposition home or self-care (01) ==
LOC: OPBI 15:59
PROVIDERS: PCP Family Medicine; Referring Provider Advanced Practice Midwife; Visit Provider Advanced Practice Midwife
DX: Z12.31 Encounter for screening mammogram for malignant neoplasm of breast (principal)
CPT/HCPCS: 77063; 77067

== ENCOUNTER → 2025-02-24 | Outpatient (CLI) | payer OTHER, SELFPAY ==
[2025-02-24 18:19] LABS: Hematocrit 38.2 % (37-47); Hemoglobin 12.3 g/dL (12.0-15.0); Immature Granulocytes Count 0.010 X10^3/uL (0.0-0.0); Mean Corp Hgb Conc 32.2 g/dL (32-36); Mean Corpuscular Volume 93.4 fL (81-99); Mean Platelet Vol. 11.8 fl (6.2-12.0); NRBC Flagged by Analyzer 0 % (0-5); Platelet Count 223 K/mm3 (150-450); RBC Distribution Width CV 12.6 % (11.6-14.6); RBC Distribution Width SD 43.6 fl (35.1-43.9); Red Blood Count 4.09 M/mm3 (4.2-5.4); White Blood Count 7.4 K/mm3 (4.4-11.0)
[2025-02-24 19:08] LABS: AST(SGOT) 22 U/L (<=31); Alanine Aminotransfer ALT/SGPT 15 U/L (<=34)
[2025-02-26 22:06] LABS: QNTFERON TB Mitogen Value > 10.00 IU/mL (.); QNTFERON TB Nil Value 0.03 IU/mL (.); QNTFERON TB1+ Ag Value 0.02 IU/mL (.); QNTFERON TB2+ Ag Value 0.02 IU/mL (.); QNTIFERON TB Positive Criteria Negative (Negative)
== END | disposition home or self-care (01) ==
LOC: MTLAB 14:29
PROVIDERS: PCP Family Medicine; Referring Provider Dermatology; Visit Provider Dermatology
DX: Z79.899 Other long term (current) drug therapy (principal)
CPT/HCPCS: 36415; 84450; 84460; 85025; 86480